=== PATIENT | male | born 1945 | race Caucasian/White ===

== ENCOUNTER 2016-04-18 08:36 | Emergency (ER) | payer OTHER, MEDICAID ==
[~2016-04-18 08:36] MED LIST: DEXTROSE (50%) 50ML SYRG IV ONE; EPINEPHrine HCL 1 MG/10 ML SYRG IV ONE; SODIUM BICARBONATE 8.4% INJ 50ML SYRINGE IV ONE
[2016-04-18 09:01] VITALS: BP 0/0
== END 2016-04-18 15:44 | disposition expired ==
LOC: ER 08:43
DX: I46.9 Cardiac arrest, cause unspecified (principal); R41.82 Altered mental status, unspecified
CPT/HCPCS: 31500; 92950; 99291; J0171; J7042